=== PATIENT | female | born 1950 | race Caucasian/White ===

== ENCOUNTER 2019-11-23 12:19 | Outpatient (CLI) | payer OTHER, SELFPAY ==
--- NOTE | ~2019-11-23 | XR_ITS ---
EXAMINATION: XR knee LT 3V EXAM DATE: 11/23/2019 12:46 INDICATION: No known recent injury provided at this time. Pain of the left knee. TECHNIQUE: Three projections of the left knee. There is no prior study for comparison. FINDINGS: No evidence osteochondral defect or joint body in the left knee joint. There is mild patel llofemoral compartment primary osteoarthritis. No joint effusion. There are no acute fractures or di slocations identified. There is no subcutaneous gas. The soft tissue is unremarkable. There are n o radiopaque foreign bodies. IMPRESSION: Mild left patellofemoral compartment osteoarthritis. Reviewed, dictated and finalized at location B.
--- NOTE | ~2019-11-23 | XR_ITS ---
EXAMINATION: XR knee RT 3V EXAM DATE: 11/23/2019 12:45 INDICATION: No known recent injury provided at this time. Pain of the right knee. TECHNIQUE: Three projections of the right knee. Correlation is made to contralateral knee same date. FINDINGS: No evidence osteochondral defect or joint body in the right knee joint. There is mild pat ellofemoral compartment primary osteoarthritis. There are no acute fractures or dislocations identifi ed. There is no subcutaneous gas. The soft tissue is unremarkable. There are no radiopaque foreig n bodies. IMPRESSION: Mild right patellofemoral compartment osteoarthritis. Reviewed, dictated and finalized at location B.
[2019-11-23 12:47] LABS: Anion Gap 7 mmol/L (8-16); Blood Urea Nitrogen 15 mg/dL (7-17); Calcium 9.2 mg/dL (8.4-10.2); Carbon Dioxide 29 mmol/L (22-30); Chloride 101 mmol/L (98-107); Estimated Glomerular Filt Rate > 60; Glucose 112 mg/dL (65-105); Potassium 3.9 mmol/L (3.4-5.0); Sodium 137 mmol/L (137-145)
== END 2019-11-23 12:20 | disposition home or self-care (01) ==
PROVIDERS: PCP Internal Medicine; Visit Provider Internal Medicine
DX: M17.0 Bilateral primary osteoarthritis of knee (principal); I10 Essential (primary) hypertension
CPT/HCPCS: 36415; 73562; 80048

== ENCOUNTER 2020-06-11 09:16 | Outpatient (CLI) | payer OTHER, SELFPAY ==
[2020-06-11 09:53] LABS: Alanine Aminotransferase 19 U/L (4-35); Alkaline Phosphatase 71 U/L (38-126); Anion Gap 2 mmol/L (8-16); Aspartate Amino Transferase 26 U/L (14-36); Bilirubin,Total 0.7 mg/dL (0.2-1.3); Blood Urea Nitrogen 15 mg/dL (7-17); Calcium 9.2 mg/dL (8.4-10.2); Carbon Dioxide 34 mmol/L (22-30); Chloride 104 mmol/L (98-107); Cholesterol 193 mg/dL (0-200); Estimated Glomerular Filt Rate > 60; Glucose 99 mg/dL (65-105); HDL Direct 69 mg/dL; Potassium 3.6 mmol/L (3.4-5.0); Sodium 140 mmol/L (137-145); Triglycerides 83 mg/dL (<150)
[2020-06-11 10:03] LABS: LDL Cholesterol Direct 95 mg/dL
== END 2020-06-11 09:17 | disposition home or self-care (01) ==
PROVIDERS: PCP Internal Medicine; Visit Provider Internal Medicine
DX: E78.5 Hyperlipidemia, unspecified (principal); I10 Essential (primary) hypertension; E78.2 Mixed hyperlipidemia
CPT/HCPCS: 36415; 80053; 80061; 84443

== ENCOUNTER 2020-07-12 10:18 | Outpatient (CLI) | payer OTHER, SELFPAY ==
--- NOTE | ~2020-07-12 | MM_ITS ---
EXAMINATION: MM screening shakeel BI w laney HISTORY: Screening mammogram TECHNIQUE: Craniocaudal and mediolateral oblique 3-D tomosynthesis images were obtained and synthetic 2-D images were generated. CAD analysis was submitted and interpreted. COMPARISON: 04/13/2019, 03/18/2018, bilateral digital screening mammogram examinations BREAST PARENCHYMAL COMPOSITION: There are scattered areas of fibroglandular density. FINDINGS: There is no evidence of suspicious mass, calcification, or architectural distortion to sugg est malignancy in either breast. There has been no suspicious interval change. IMPRESSION: 1. No mammographic evidence of malignancy. 2. Recommend routine screening mammography in one year. BI-RADS Category 1: Negative Reviewed, dictated and finalized at location A.
== END 2020-07-12 10:19 | disposition home or self-care (01) ==
PROVIDERS: PCP Internal Medicine; Visit Provider Internal Medicine
DX: Z12.31 Encounter for screening mammogram for malignant neoplasm of breast (principal)
CPT/HCPCS: 77063; 77067

== ENCOUNTER 2020-11-13 08:02 | Outpatient (CLI) | payer OTHER, SELFPAY ==
--- NOTE | 2020-11-13 08:00 | ECG_ITS ---
Measurements Intervals [place] Rate: 76 P: 38 CO: 155 QRS: 15 QRSD: 77 T: 0 QT: 380 QTc: 429 Interpretive Statements SINUS RHYTHM POSSIBLE LEFT ATRIAL ENLARGEMENT INCOMPLETE RIGHT BUNDLE BRANCH BLOCK DELAYED PRECORDIAL R/S TRANSITION BORDERLINE T WAVE ABNORMALITY- INFERIOR LEADS BASELINE ARTIFACT- I, II, III, AVR, AVL BORDERLINE ECG Electronically Signed On 11-13-2020 8:29:10 CDT by Saturnino Medel D.O.
[2020-11-13 09:07] LABS: Anion Gap 7 mmol/L (8-16); Blood Urea Nitrogen 15 mg/dL (7-17); Calcium 9.4 mg/dL (8.4-10.2); Carbon Dioxide 27 mmol/L (22-30); Chloride 101 mmol/L (98-107); Estimated Glomerular Filt Rate > 60; Glucose 95 mg/dL (65-110); Potassium 3.6 mmol/L (3.4-5.0); Sodium 135 mmol/L (137-145)
== END 2020-11-13 08:03 | disposition home or self-care (01) ==
LOC: ANHSURGERY 08:06
PROVIDERS: Anesthesiology; PCP Internal Medicine; Visit Provider Surgery Plastic and Reconstructive Surgery
DX: Z01.818 Encounter for other preprocedural examination (principal); I10 Essential (primary) hypertension
CPT/HCPCS: 36415; 80048; 93005

== ENCOUNTER 2020-11-15 01:22 | Day surgery (SDC) | payer OTHER, SELFPAY ==
[2020-11-05 13:50] VITALS: BMI 28.3
[2020-11-15 08:48] VITALS: BP 138/81; PULSE 79; RESP 18; TEMP 37.1; O2SAT 97; BMI 29.5
[2020-11-15] MEDS: LACTATED RINGERS 1,000 ML 30 ML IV CONT (09:09)
--- NOTE | 2020-11-15 09:20 | WPDANESEPPF ---
Anes - Initial Pre Proc Eval Procedure: Operation Date: 11/15/20 10:30 Proposed Procedures p Excision Mass Left Upper Lash Line, Excision Mass Left Upper Eyelid - Klaus Ayers MD Date/Time: 11/15/20 09:20 Surgeon: Klaus Ayers MD Pre Op Diagnosis: mass left upper lash line and left upper eyelid Patient Data Age: 70 Gender: F Height: 1.6 m Weight: 75.6 kg Last Vital Signs Temp 37.1 C 11/15/20 08:48 Pulse 79 11/15/20 08:48 Resp 18 11/15/20 08:48 BP 138/81 11/15/20 08:48 Pulse Ox 97 11/15/20 08:48 Allergies Allergy/AdvReac Type Severity Reaction Status Date / Time Penicillins Allergy Mild Hives Verified 11/15/20 08:50 Home Medications Medication Instructions Recorded Confirmed Type calcium carbonate 600 mg(1,500 1 tablet PO DAILY 03/22/19 11/15/20 History mg)-vitamin D3 800 unit chewable tablet cholecalciferol (vitamin D3) 50 2,000 unit PO DAILY 03/22/19 11/15/20 History mcg (2,000 unit) tablet coenzyme Q10 100 mg capsule 100 mg PO DAILY 03/22/19 11/15/20 History omega 3,6,9 combination no.7 92 mg 92 mg PO DAILY 03/22/19 11/15/20 History (43 mg-22 [id number]) chew tablet amlodipine 5 mg tablet 5 mg PO DAILY #90 tablet 06/07/20 11/15/20 Rx fluticasone propionate 50 2 spray NASAL DAILY PRN 06/07/20 11/15/20 History mcg/actuation nasal spray,suspension hydrochlorothiazide 12.5 mg capsule 12.5 mg PO DAILY #90 cap 06/07/20 11/15/20 Rx mecobalamin (vitamin B12) 1,000 1,000 mcg SUBLINGUAL BID tablet 06/07/20 11/15/20 History mcg disintegrating tablet,sublingual atorvastatin 10 mg tablet 10 mg PO DAILY #90 tablet 08/27/20 11/15/20 Rx Patient hx anesthesia problems: none Family hx anesthesia problems: none PMFSH Past Medical History Medical History Dyslipidemia Essential hypertension Surgical History Surgical History History of delivery Family History Family History Father Family history of heart disease in male family member before age 55 Mother Family history of heart disease in male family member before age 55 Other Diabetes mellitus Family history of alcoholism Family history of arthritis Family history of cardiovascular disease Hypertension Social History Social History Years smoked: 16 Smoking status: Former smoker Tobacco type: cigarettes Second hand tobacco smoke exposure: Yes Smoking end date: 04/06/79 Alcohol intake: current Drinks per week: 3 Living arrangements: with family Spiritual care concerns: No Anes - Eval Final PreProcedure Day of Procedure 11/15/20 09:20 Patient weight: overweight Heart: regular rate and rhythm Lungs: clear to auscultation Airway: Mallampati scale class II Neurological: alert and oriented Last oral intake: >/= 8 hours ASA classification: II Emergent: no Anesthetic plan: proceed Anesthesia type and monitoring: general LMA and standard monitoring Informed Consent: The patient's anesthetic plan and its attendant risks and benefits were discussed with the patient/family/POA. Questions were solicited and answers provided to the satisfaction of the patient/family/POA.
--- NOTE | 2020-11-15 09:57 | WPDHPUPDATE1 ---
History and Physical Update Update Date/Time: 11/15/20 09:57 History and Physical has been reviewed, including an updated exam of the patient. There are NO changes in the patient's condition. Risks, benefits, and alternatives have been discussed and questions answered. Patient agrees to proceed with procedure.
[2020-11-15] MEDS: ceFAZolin 2 GM/D5W 50 ML 2 GM/50 ML BAG IVPB (10:27)
[2020-11-15 11:07] VITALS: BP 93/65; PULSE 73; RESP 16; O2SAT 95
[2020-11-15] MEDS: BACITRACIN OP OINT 3.5 GM TUBE 1 APPLIC LEFT EYE (11:12)
--- NOTE | 2020-11-15 11:15 | W.PM.PROC2 ---
Procedure Note - Detailed Date of Procedure 11/15/20 Pre-op Diagnosis Mass left upper lash line and left upper eyelid Post-op Diagnosis same Procedure Performed 1. Excision mass left upper lash line 0.4cm. 2. Excision mass left upper eyelid 0.5cm. Surgeon Klaus Ayers MD Anesthesia MAC Description of Procedure Risks, benefits, alternatives were discussed in extensive detail. I wanted her to be very realistic about the risks involved as well as expectations. All questions answered to satisfaction. Consent obtained. Patient was marked in the preoperative holding area with her verification. Taken to the operating room placed supine on the operating room table. Anesthesia provided by anesthesiology and prepped and draped in a standard sterile fashion. Surgical time-out was taken. 1% lidocaine and 0.25% Marcaine with epinephrine was used anesthetize locally. I sharply excised the cyst on the left upper lash line in left upper lid. These were sent to pathology. Measurements as above. There were closed with 5 0 fast-absorbing gut. She tolerated the procedure well. Taken the PACU without difficulty. All instrument sponge counts were correct at the end of the case. Estimated Blood Loss 2 Drains No Packing No Pathology yes (Left upper eyelid cyst x 2) Complications No immediate complications Condition stable Disposition PACU
[2020-11-15 11:30] VITALS: BP 113/79; PULSE 66; RESP 16
[2020-11-15 12:00] VITALS: BP 135/85; PULSE 61; RESP 16
--- NOTE | 2020-11-15 12:59 | SUR.PHASEII ---
DISREGARD CHARTING AT 1257.
--- NOTE | 2020-11-15 13:02 | SUR.PHASEII ---
DISREGARD CHARTING AT 1255.
== END 2020-11-15 12:35 | disposition home or self-care (01) ==
PROVIDERS: PCP Internal Medicine; Visit Provider Surgery Plastic and Reconstructive Surgery
PROC: (CPT 11441; principal; 2020-11-15 10:30)
DX: D23.121 Other benign neoplasm of skin of left upper eyelid, including canthus (principal); L98.8 Other specified disorders of the skin and subcutaneous tissue; I10 Essential (primary) hypertension; E78.5 Hyperlipidemia, unspecified; Z87.891 Personal history of nicotine dependence
CPT/HCPCS: 11441; 36415; 80048; 88304; 88305; 93005; A9270; J0690; J2704; J7120

== ENCOUNTER 2021-06-27 08:52 | Outpatient (CLI) | payer OTHER, SELFPAY ==
[2021-06-27 09:32] LABS: Alanine Aminotransferase 18 U/L (4-35); Albumin Level 3.9 g/dL (3.5-5.1); Alkaline Phosphatase 83 U/L (38-126); Anion Gap 2 mmol/L (8-16); Aspartate Amino Transferase 27 U/L (14-36); Bilirubin,Total 0.8 mg/dL (0.2-1.3); Blood Urea Nitrogen 12 mg/dL (7-17); Calcium 8.9 mg/dL (8.4-10.2); Carbon Dioxide 32 mmol/L (22-30); Chloride 104 mmol/L (98-107); Estimated Glomerular Filt Rate > 60; Glucose 112 mg/dL (65-110); Potassium 4.1 mmol/L (3.4-5.0); Sodium 138 mmol/L (137-145)
[2021-06-27 09:41] LABS: Basophils Percent Auto 0.7 % (0.2-1.2); Eosinophils Absolute Auto 0.4 K/mm3 (0-0.3); Eosinophils Percent Auto 8.7 % (0-4.4); Hemoglobin 14.3 g/dL (12.0-15.0); Immature Granulocyte Absolute 0.01 K/mm3 (0.00-0.031); Immature Granulocyte Percent A 0.2 % (0-0.5); Lymphocytes Absolute Auto 1.47 K/mm3 (0.9-3.2); Lymphocytes Percent Auto 32.7 % (18.3-44.2); Mean Corpuscular Hemoglobin 31.4 pg (26-34); Mean Corpuscular Volume 92.3 fl (80-100); Mean Platelet Volume 10.6 fl (7.4-10.4); Monocytes Absolute Auto 0.4 K/mm3 (0.1-0.6); Monocytes Percent Auto 9.6 % (2.6-8.5); Neutrophils Absolute Auto 2.2 K/mm3 (1.3-6.7); Neutrophils Percent Auto 48.1 % (45.5-73.1); Platelet Count Result 206 k/mm3 (150-375); Red Blood Count 4.55 M/mm3 (4.2-5.4); Red Cell Distribution Width 12.3 % (11.5-14.5); White Blood Count 4.5 K/mm3 (4.5-10.0)
[2021-06-27 10:12] LABS: Vitamin D 25 Hydroxy 60.5 ng/mL
== END 2021-06-27 08:53 | disposition home or self-care (01) ==
LOC: ANHLAB 08:57
PROVIDERS: PCP Internal Medicine; Visit Provider Internal Medicine
DX: G25.0 Essential tremor (principal); E55.9 Vitamin D deficiency, unspecified; M85.89 Other specified disorders of bone density and structure, multiple sites; E78.00 Pure hypercholesterolemia, unspecified; E78.5 Hyperlipidemia, unspecified
CPT/HCPCS: 36415; 80053; 82306; 84443; 85025

== ENCOUNTER 2022-03-18 08:53 | Outpatient (CLI) | payer OTHER, SELFPAY ==
--- NOTE | ~2022-03-18 | MM_ITS ---
EXAMINATION: MM screening shakeel BI w laney HISTORY: Screening TECHNIQUE: Craniocaudal and mediolateral oblique 3-D tomosynthesis images were obtained and synthetic 2-D images were generated. CAD analysis was submitted and interpreted. COMPARISON: Comparison to multiple prior studies sequentially, with oldest reviewed study dated 10/21. BREAST PARENCHYMAL COMPOSITION: Breast composed of scattered areas of fibroglandular density FINDINGS: There is no evidence of suspicious mass, calcification, or architectural distortion to sugg est malignancy in either breast. There has been no suspicious interval change. IMPRESSION: 1. No mammographic evidence of malignancy. 2. Recommend routine screening mammography in one year. BI-RADS Category 1: Negative Reviewed, dictated and finalized at location B. RIBUTION MANAGER
== END 2022-03-18 08:54 | disposition home or self-care (01) ==
PROVIDERS: PCP Family Medicine; Visit Provider Family Medicine
DX: Z12.31 Encounter for screening mammogram for malignant neoplasm of breast (principal)
CPT/HCPCS: 77063; 77067

== ENCOUNTER 2022-07-02 09:08 | Outpatient (CLI) | payer OTHER, SELFPAY ==
[2022-07-02 20:07] LABS: Alanine Aminotransferase 25 U/L (6-35); Alkaline Phosphatase 79 U/L (38-126); Anion Gap 4 mmol/L (8-16); Aspartate Amino Transferase 28 U/L (14-36); Bilirubin,Total 0.7 mg/dL (0.2-1.3); Blood Urea Nitrogen 20 mg/dL (7-17); Calcium 8.8 mg/dL (8.4-10.2); Carbon Dioxide 31 mmol/L (22-30); Chloride 104 mmol/L (98-107); Cholesterol 149 mg/dL (0-200); Estimated Glomerular Filt Rate > 60; Glucose 94 mg/dL (65-110); HDL Direct 56 mg/dL; Potassium 3.7 mmol/L (3.4-5.0); Sodium 139 mmol/L (137-145); Triglycerides 66 mg/dL (<150)
[2022-07-02 20:19] LABS: LDL Cholesterol Direct 71 mg/dL
== END 2022-07-02 09:09 | disposition home or self-care (01) ==
LOC: ANHGOSHLAB 09:09
PROVIDERS: PCP Family Medicine; Visit Provider Family Medicine
DX: E78.00 Pure hypercholesterolemia, unspecified (principal); I10 Essential (primary) hypertension; Z13.29 Encounter for screening for other suspected endocrine disorder
CPT/HCPCS: 36415; 80053; 80061; 84443

== ENCOUNTER 2022-09-09 08:00 | Outpatient (NON) | payer OTHER, SELFPAY | END 2022-09-09 08:01 | disposition home or self-care (01) | LOC: ANHLAB 09-10 12:04 | PROVIDERS: PCP Family Medicine; Visit Provider Nurse Practitioner | DX: D36.10 Benign neoplasm of peripheral nerves and autonomic nervous system, unspecified (principal) | CPT/HCPCS: 88304; 88305 ==

== ENCOUNTER 2023-07-08 09:13 | Outpatient (CLI) | payer OTHER, SELFPAY ==
--- NOTE | ~2023-07-08 | MM_ITS ---
EXAMINATION: MM screening shakeel BI w laney HISTORY: Screening TECHNIQUE: Craniocaudal and mediolateral oblique 3-D tomosynthesis images were obtained and synthetic 2-D images were generated. CAD analysis was submitted and interpreted. COMPARISON: Comparison to multiple prior studies sequentially, with oldest reviewed study dated 11/2019. BREAST PARENCHYMAL COMPOSITION: Not dense: There are scattered areas of fibroglandular density. FINDINGS: There is no evidence of suspicious mass, calcification, or architectural distortion to sugg est malignancy in either breast. There has been no suspicious interval change. IMPRESSION: 1. No mammographic evidence of malignancy. 2. Recommend routine screening mammography in one year. BI-RADS Category 1: Negative Reviewed, dictated and finalized at location A.
== END 2023-07-08 09:14 | disposition home or self-care (01) ==
LOC: ANHIMG 09:16
PROVIDERS: PCP Family Medicine; Visit Provider Family Medicine
DX: Z12.31 Encounter for screening mammogram for malignant neoplasm of breast (principal)
CPT/HCPCS: 77063; 77067

== ENCOUNTER 2023-07-09 09:12 | Outpatient (CLI) | payer OTHER, SELFPAY ==
[2023-07-09 13:10] LABS: Basophils Absolute Auto 0.1 K/mm3 (0.0-0.1); Basophils Percent Auto 0.9 % (0.2-1.2); Eosinophils Absolute Auto 0.4 K/mm3 (0-0.3); Eosinophils Percent Auto 7.4 % (0-4.4); Hematocrit 45.7 % (37.0-47.0); Immature Granulocyte Absolute 0.01 K/mm3 (0.00-0.031); Immature Granulocyte Percent A 0.2 % (0-0.5); Lymphocytes Absolute Auto 1.84 K/mm3 (0.9-3.2); Lymphocytes Percent Auto 33.3 % (18.3-44.2); Mean Corpuscular HGB Conc 32.8 g/dl (32-36); Mean Corpuscular Hemoglobin 31.3 pg (26-34); Mean Corpuscular Volume 95.4 fl (80-100); Mean Platelet Volume 11.1 fl (7.4-10.4); Monocytes Absolute Auto 0.4 K/mm3 (0.1-0.6); Monocytes Percent Auto 6.5 % (2.6-8.5); Neutrophils Absolute Auto 2.9 K/mm3 (1.3-6.7); Neutrophils Percent Auto 51.7 % (45.5-73.1); Platelet Count Result 220 k/mm3 (150-375); Red Blood Count 4.79 M/mm3 (4.2-5.4); Red Cell Distribution Width 12.5 % (11.5-14.5); White Blood Count 5.5 K/mm3 (4.5-10.0)
[2023-07-09 13:30] LABS: Alanine Aminotransferase 20 U/L (6-35); Albumin Level 3.9 g/dL (3.5-5.1); Alkaline Phosphatase 78 U/L (38-126); Anion Gap 2 mmol/L (4-12); Aspartate Amino Transferase 59 U/L (14-36); Blood Urea Nitrogen 17 mg/dL (7-17); Calcium 9.4 mg/dL (8.4-10.2); Carbon Dioxide 30 mmol/L (22-30); Chloride 106 mmol/L (98-107); Cholesterol 158 mg/dL (0-200); Estimated Glomerular Filt Rate > 60; Glucose 100 mg/dL (65-110); HDL Direct 59 mg/dL; Potassium 3.8 mmol/L (3.4-5.0); Sodium 138 mmol/L (137-145); Triglycerides 84 mg/dL (<150)
[2023-07-09 13:41] LABS: LDL Cholesterol Direct 80 mg/dL
== END 2023-07-09 09:13 | disposition home or self-care (01) ==
LOC: ANHGOSHLAB 09:13
PROVIDERS: PCP Family Medicine; Visit Provider Family Medicine
DX: Z13.228 Encounter for screening for other metabolic disorders (principal); E66.3 Overweight; Z13.220 Encounter for screening for lipoid disorders; I10 Essential (primary) hypertension; Z13.29 Encounter for screening for other suspected endocrine disorder; R53.83 Other fatigue
CPT/HCPCS: 36415; 80053; 80061; 84443; 85025

== ENCOUNTER 2023-08-27 00:50 | Day surgery (SDC) | payer OTHER, SELFPAY ==
[2023-08-14 11:00] VITALS: BMI 30.8
--- NOTE | 2023-08-14 11:23 | PC.NURSE ---
Report to the Outpatient Waiting Room, entrance under the green pavilion located off [facility], at time __8:30am on date __08/27/23 . Planned Procedure Time: __10:30am . Time changes happen often and if your time is changed the preop area will call you the afternoon before. - You and your visitor will be asked to self-screen and do not enter if you have any COVID symptoms. - A mask is optional within the hospital at this time. Patients may have clear liquids (water, carbonated beverages, clear teas, apple juice) until 3 hours prior to surgery with a maximum of 20 ounces. - No food from midnight until time of surgery. Take the following medications with a SIP of water the morning of surgery: AMLODIPINE, PROPRANOLOL DO NOT STOP ANY OF YOUR OTHER PRESCRIPTION MEDICATIONS PRIOR TO SURGERY ?EXCEPT THE FOLLOWING Medications to discontinue per physician ___HOLD ALL VITAMINS/SUPPLEMENTS 3 DAYS PRE-OP PER ANESTHESIA Date to take last dose 08/23/23 Please no make-up, nail togolese, hairspray, perfume, deodorant, or body powder the day of surgery. No jewelry (including any body piercings) or valuables the day of surgery, leave them at home. Please take a shower or bath the night before, or the morning of, surgery with an antibacterial soap. Wear comfortable, loose fitting clothing. - Jewelry must be removed prior to entering the operating room. Rings and piercings that are not removed may be cut off. - The hospital will not accept responsibility for valuables. - Please leave all valuables, including medications, at home the day of surgery. If you are going home after surgery, a licensed lease purchase truck driver must drive you home. - NO public transportation without another adult if you receive anesthesia. - We recommend that an adult stay with you for 24 hours following discharge. - We also recommend that you do not drive, make important decision, drink alcoholic beverages, or take any drugs that were not prescribed by your health care provider for at least 24 hours after your discharge time. Follow any additional instructions given to you from your surgeon. If you or anyone in your household have experienced Covid symptoms in the past week, please notify your surgeon or the nurse liaison at the phone number below for possible testing. Telephone instructions given to ____PATIENT and asked if any additional questions and then verbalized understanding. Patient advised to call surgeon office or pre surgery nurse liaison [phone] if any additional questions.
--- NOTE | 2023-08-26 15:24 | PM.IMHP ---
H&P: HPI History of Present Illness Date/Time: 08/26/23 15:24 73-year-old female presents with complaints 5 days of pink tinged vaginal bleeding in March. This has not recurred and was not accompanied by any type of pain or discomfort, did occur spontaneously and resolve spontaneously as well. Ultrasound was performed which showed no major anatomic abnormalities though the endometrial thickness of 6mm with fluid in the endometrial cavity. Has had no recurrence of the bleeding episode. Chief Complaint: Postmenopausal bleeding/endometrial hypertrophy on ultrasound Review of Systems Review of Systems: All systems reviewed & are unremarkable except as noted in HPI and below PMFSH Past Medical History Medical History Dyslipidemia Essential hypertension Surgical History Surgical History History of delivery History of cholecystectomy (2017) Family History Family History Father Family history of heart disease in male family member before age 55 Mother Family history of heart disease in male family member before age 55 Other Diabetes mellitus Family history of alcoholism Family history of arthritis Family history of cardiovascular disease Hypertension Social History Social History Smoking packs per day: 0.2 Smoking cigarettes per day: 4.0 Years smoked: 15 Smoking pack-years: 3.00 Smoking status: Former smoker Tobacco type: cigarettes Second hand tobacco smoke exposure: Yes Smoking end date: 10/05/83 Alcohol intake: current Drinks per week: 2 Substance use: never Substance use type: does not use Do You Feel Safe in your Home?: Yes Lack of Transportation: No Lack of Food: Never True Current Housing: I Have Housing Concerned About Future Housing: No Difficulty Paying Gas/Electric Bills: No Difficulty Paying for Meds: No Currently Unemployed: No Education: Master's Degree or Higher Difficulty w/ Childcare or Family Care: No Living arrangements: with family Additional living arrangements comments: [place] Occupation/Education: retired Gender identity (if verbalized by the patient): Female Sexual Orientation (if Verbalized by the Patient): Straight or Heterosexual Spiritual care concerns: No Meds Home Medications and Allergies Home Medications Medication Instructions Recorded Confirmed Type calcium carbonate 600 mg-vitamin 1 tablet PO DAILY 03/22/19 08/14/23 History D3 20 mcg (800 unit) chewable tablet (Caltrate 600 plus D) cholecalciferol (vitamin D3) 50 2,000 unit PO DAILY 03/22/19 08/14/23 History mcg (2,000 unit) tablet coenzyme Q10 100 mg capsule 100 mg PO DAILY 03/22/19 08/14/23 History omega 3,6,9 combination no.7 92 mg 92 mg PO DAILY 03/22/19 08/14/23 History (43 mg-22 [id number]) chew tablet mecobalamin (vitamin B12) 1,000 1,000 mcg sublingual BID 06/07/20 08/14/23 History mcg disintegrating tablet,sublingual propranolol 40 mg tablet 40 mg PO BID 90 days #180 tabs 06/15/23 08/14/23 Rx atorvastatin 10 mg tablet 10 mg PO DAILY #90 tabs 07/16/23 08/14/23 Rx amlodipine 5 mg tablet 5 mg PO QAM 08/14/23 08/14/23 History famotidine 20 mg tablet (Pepcid AC) 20 mg PO DAILY 08/14/23 08/14/23 History Allergies Allergy/AdvReac Type Severity Reaction Status Date / Time Penicillins Allergy Mild Hives Verified 08/14/23 10:55 Exam Resp: Effort & Inspection: normal respiratory effort Auscultation: clear to auscultation bilaterally Cardio: Rate: regular rate Rhythm: regular rhythm GI: Inspection: normal to inspection Auscultation: normal bowel sounds : External Female Exam: normal external appearance Speculum Exam - Vagina: normal appearance of the vagina Speculum Exam - Cervix: normal ap
--- NOTE | 2023-08-27 06:57 | WPDHPUPDATE1 ---
History and Physical Update Update Date/Time: 08/27/23 06:57 History and Physical has been reviewed, including an updated exam of the patient. There are NO changes in the patient's condition. Risks, benefits, and alternatives have been discussed and questions answered. Patient agrees to proceed with procedure.
[2023-08-27 08:15] VITALS: BP 121/79; PULSE 63; RESP 16; TEMP 36.5; O2SAT 96; BMI 31.4
[2023-08-27] MEDS: LACTATED RINGERS 1,000 ML 30 ML IV CONT (09:05)
[2023-08-27] MEDS: ACETAMINOPHEN 500 MG TABLET 1000 MG PO (09:12)
--- NOTE | 2023-08-27 09:55 | WPDANESEPPF ---
Anes - Initial Pre Proc Eval Procedure: Operation Date: 08/27/23 10:00 Proposed Procedures p Hysteroscopy Dilation and Curettage - Garcia Jimenez MD Date/Time: 08/27/23 09:55 Surgeon: Garcia Jimenez MD Pre Op Diagnosis: Post menapausal Bleeding Patient Data Age: 73 Gender: F Height: 1.6 m Weight: 80.6 kg Last Vital Signs Temp 97.7 F 08/27/23 08:15 Pulse 63 08/27/23 08:15 Resp 16 08/27/23 08:15 BP 121/79 08/27/23 08:15 Pulse Ox 96 08/27/23 08:15 O2 Del Method Room Air 08/27/23 08:15 Allergies Allergy/AdvReac Type Severity Reaction Status Date / Time Penicillins Allergy Mild Hives Verified 08/27/23 09:28 Home Medications Medication Instructions Recorded Confirmed Type calcium carbonate 600 mg-vitamin 1 tablet PO DAILY 03/22/19 08/27/23 History D3 20 mcg (800 unit) chewable tablet (Caltrate 600 plus D) cholecalciferol (vitamin D3) 50 2,000 unit PO DAILY 03/22/19 08/27/23 History mcg (2,000 unit) tablet coenzyme Q10 100 mg capsule 100 mg PO DAILY 03/22/19 08/27/23 History omega 3,6,9 combination no.7 92 mg 92 mg PO DAILY 03/22/19 08/27/23 History (43 mg-22 [id number]) chew tablet mecobalamin (vitamin B12) 1,000 1,000 mcg sublingual BID 06/07/20 08/27/23 History mcg disintegrating tablet,sublingual propranolol 40 mg tablet 40 mg PO BID 90 days #180 tabs 06/15/23 08/27/23 Rx atorvastatin 10 mg tablet 10 mg PO DAILY #90 tabs 07/16/23 08/27/23 Rx amlodipine 5 mg tablet 5 mg PO QAM 08/14/23 08/27/23 History famotidine 20 mg tablet (Pepcid AC) 20 mg PO DAILY 08/14/23 08/14/23 History Patient hx anesthesia problems: none Family hx anesthesia problems: none Results Review: All pre-operative results and documents have been reviewed as part of the pre-operative evaluation. [facility] Past Medical History Medical History Dyslipidemia Essential hypertension Surgical History Surgical History History of delivery History of cholecystectomy (2017) Family History Family History Father Family history of heart disease in male family member before age 55 Mother Family history of heart disease in male family member before age 55 Other Diabetes mellitus Family history of alcoholism Family history of arthritis Family history of cardiovascular disease Hypertension Social History Social History Smoking packs per day: 0.2 Smoking cigarettes per day: 4.0 Years smoked: 15 Smoking pack-years: 3.00 Smoking status: Former smoker Tobacco type: cigarettes Second hand tobacco smoke exposure: Yes Smoking end date: 10/05/83 Alcohol intake: current Drinks per week: 2 Substance use: never Substance use type: does not use Do You Feel Safe in your Home?: Yes Lack of Transportation: No Lack of Food: Never True Current Housing: I Have Housing Concerned About Future Housing: No Difficulty Paying Gas/Electric Bills: No Difficulty Paying for Meds: No Currently Unemployed: No Education: Master's Degree or Higher Difficulty w/ Childcare or Family Care: No Living arrangements: with family Additional living arrangements comments: [place] Occupation/Education: retired Gender identity (if verbalized by the patient): Female Sexual Orientation (if Verbalized by the Patient): Straight or Heterosexual Spiritual care concerns: No Anes - Eval Final PreProcedure Day of Procedure 08/27/23 09:55 Patient weight: obese Heart: regular rate and rhythm Lungs: clear to auscultation Airway: Mallampati scale class II Neurological: alert and oriented Last oral intake: >/= 8 hours ASA classification: III Emergent: no Anesthetic plan: proceed Anesthesia type and monitoring: gener
--- NOTE | 2023-08-27 10:27 | W.PM.PROC2 ---
Procedure Note - Detailed Date of Procedure 08/27/23 Pre-op Diagnosis 1. Post menapausal Bleeding 2. Endometrial hypertrophy Post-op Diagnosis Same Procedure Performed 1. Hysteroscopy 2. Uterine curettings Surgeon Garcia Jimenez MD Anesthesia MAC Findings Atrophic endometrial cavity with small uterine septum noted Description of Procedure Patient prepped in usual manner for this procedure. Cervix was dilated to allow the hysteroscope to be placed. Upon placing hysteroscope in the endometrial cavity atrophy was noted throughout, no polyps or fibroids or significant endometrial tissue. Small uterine septum was identified. Curettings were then obtained with scant tissue provided. Patient was then sent to recovery room in stable condition. Estimated Blood Loss 10 Drains No Packing No Pathology Yes (Scant endometrial tissue) Complications No immediate complications Condition Stable Disposition PACU [facility] Billing Surgery - Charge Forward: Surgery Billing
[2023-08-27 10:33] VITALS: BP 97/74; PULSE 60; RESP 14; O2SAT 95
[2023-08-27 11:05] VITALS: BP 113/67; PULSE 53; RESP 16
[2023-08-27 11:27] VITALS: BP 134/81; PULSE 55; RESP 16
== END 2023-08-27 11:33 | disposition home or self-care (01) ==
PROVIDERS: PCP Family Medicine; Visit Provider Obstetrics & Gynecology
PROC: 0U5B8ZZ Destruction of Endometrium, Via Natural or Artificial Opening Endoscopic (ICD-10-PCS; CPT 58563; principal; 2023-08-27 10:00)
DX: N95.0 Postmenopausal bleeding (principal); N85.8 Other specified noninflammatory disorders of uterus; I10 Essential (primary) hypertension; E78.5 Hyperlipidemia, unspecified; Z87.891 Personal history of nicotine dependence; E66.9 Obesity, unspecified; Z68.31 Body mass index [BMI] 31.0-31.9, adult
CPT/HCPCS: 58558; 88305; A9270; J2250; J2405; J2704; J3010; J7120

== ENCOUNTER 2024-08-01 09:32 | Outpatient (CLI) | payer OTHER, SELFPAY ==
--- OUTSIDE RECORDS SUMMARY | 2024-08-01 10:23 | XMS_ITS | Encounter Summary ---
Author Organization [facility] Address 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 - [facility] [address] [place] [address] Silivno Senior MD [id number] [address] Social History Tobacco Use Types Packs/Day Years Used Date Smoking Tobacco: Never Assessed Comments Unknown Sex and Gender Information Value Date Recorded Sex Assigned at Not on file 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
--- OUTSIDE RECORDS SUMMARY | 2024-08-01 10:23 | XMS_ITS | Encounter Summary ---
Author Organization [facility] Address 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 - [facility] [address] [place] [address] Silvino Senior MD [id number] [address] Social History Tobacco Use Types Packs/Day Years Used Date Smoking Tobacco: Never Assessed Comments Unknown Sex and Gender Information Value Date Recorded Sex Assigned at Not on file 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
--- OUTSIDE RECORDS SUMMARY | 2024-08-01 10:23 | XMS_ITS | Clinical Summary ---
Author Organization [facility] Address [address] [place] [address] Care Team Providers Care Instrument Maker Name Role Phone Hollis Pemberton MD Primary Care Provider [phone] Allergies Active Allergy Reactions Criticality Noted Date Comments Penicillins Rash Low 12/31/2009 Medications 0mega-3 fatty acids-vitamin E (FISH OIL) 1,000 mg Oral Cap Take 1,000 mg by mouth. Active Calcium-Cholecal ciferol, D3, (CALCIUM 500 + D) 500 mg(1,250mg) -400 unit Oral Tab Take by mouth. Active CYANOCOBALAMIN, VITAMIN B-12, (B-12 DOTS ORAL) Take by mouth. Active Active Problems No known active problems Family History Medical History Relation Name Comments Healthy Brother Heart Disease Father Heart Disease Mother Relation Name Status Comments Brother Alive Father Mother Social History Tobacco Use Types Packs/Day Years Used Date Smoking Tobacco: Never Smokeless Tobacco: Never Alcohol Use Standard Drinks/Week Comments Yes 0 (1 standard drink = 0.6 oz pur e alcohol) Comments No Sex and Gender Information Value Date Recorded Sex Assigned at Not on file Legal Sex Female 2:51 AM DATABASE DESIGNER Gender Identity Not on file Sexual Orientation Not on file Occupation Industry Job Start Date Job End Date Not on file Not on file Not on file Not on file Last Filed Vital Signs Vital Sign Reading Time Taken Comments Blood Pressure 135/82 05/25/2012 9:58 AM DATABASE DESIGNER Pulse - - Temperature - - Respiratory Rate - - Oxygen Saturation - - Inhaled Oxygen Concentration - - Weight 73.9 kg (163 lb) 05/25/2012 9:58 AM DATABASE DESIGNER Height 160 cm (5' 3 ) 05/25/2012 9:58 AM DATABASE DESIGNER Body Mass Index 28.87 05/25/2012 9:58 AM DATABASE DESIGNER Plan of Treatment Health Maintenance Due Date Last Done Comments DTAP/TDAP/TD VACCINES (1 - Tdap) 1967 PNEUMOCOCCAL VACCINE 50+ YEARS (1 of 1 - PCV) 03/24/19 98 ZOSTER VACCINE (1 of 2) 1998 OSTEOPOROSIS SCREENING 2013 RSV VACCINE (60+ or ) (1 - 1-dose 75+ series) 2023 INFLUENZA VACCINE (#1) 2023 COLORECTAL SCREENING Discontinued 12/31/2009 Colorectal Cancer Screening Discontinued FIT-DNA Q 3 years Discontinued FIT/FOBT Q 1 year Discontinued Flex Sig/CT Colonography Q 5 years Discontinued Insurance [facility] [employer] ACCESS CHOICE Care Teams Instrument Maker Relationship Specialty Start Date End Date Hollis Pemberton MD [address] [place] [address] PCP - General 05/04/08
--- OUTSIDE RECORDS SUMMARY | 2024-08-01 10:23 | XMS_ITS | Referral Summary ---
Author Organization [facility] Address [address] [place] [address] Care Team Providers Care Aircraft Maintenance Engineer Name Role Phone Aleksandr Pal DO Primary Care Provider [phone] Allergies Active Allergy Reactions Criticality Noted Date Comments Penicillins Hives Medium 2017 Medications amLODIPine (NORVASC) 5 mg tablet Active hydroCHLOROthia zide (MICROZIDE) 12.5 mg capsule 07/19/2018 Act alayna cyanocobalamin, vitamin B-12, 2,500 mcg tablet Active aspirin 81 mg enteric coated tablet Active thymol, bulk, crystalsIndicat ions:Onychomyco sis disolve in pure EtOH and dispense with dropper - apply 2 drops to nails daily 100 g 08/31/2018 Active Active Problems Problem Noted Date Diagnosed Date Sensorineural hearing loss (SNHL) of both ears 0 07/13/2018 Social History Tobacco Use Types Packs/Day Years Used Date Smoking Tobacco: Former Personal Safety Answer Date Recorded Getting School Help Needed Not on file 06/16 Comments Unknown Sex and Gender Information Value Date Recorded Sex Assigned at Not on file Legal Sex Female 10:06 AM CONTINUOUS IMPROVEMENT ENGINEER Gender Identity Not on file Sexual Orientation Not on file Last Filed Vital Signs Vital Sign Reading Time Taken Comments Blood Pressure 145/97 2017 8:59 AM CONTINUOUS IMPROVEMENT ENGINEER Pulse 81 2017 8:59 AM CONTINUOUS IMPROVEMENT ENGINEER Temperature - - Respiratory Rate - - Oxygen Saturation - - Inhaled Oxygen Concentration - - Weight 74.9 kg (165 lb 0.6 oz) 2017 8:59 A M CONTINUOUS IMPROVEMENT ENGINEER Height 162.6 cm (5' 4 ) 2017 8:59 AM CONTINUOUS IMPROVEMENT ENGINEER Body Mass Index 28.33 2017 8:59 AM CONTINUOUS IMPROVEMENT ENGINEER Plan of Treatment Not on file Procedures Procedure Name Priority Date/Time Associated Diagnosis Comments DIGITAL MAMMOGRAPHY Routine 06/23/2012 8 :52 AM CDT from Last 3 Months or Most Recently Relevant to Health Maintenance Results * DIGITAL MAMMOGRAPHY (06/23/2012 8:52 AM CDT) Anatomical Region Laterality Modality Breast Mammography 06/23/2012 8:52 AM CDT Narrative 06/24/2012 8:14 AM CDT Acc#: [id number] KELLEE [id number] - Screening Mamm BI DATE OF EXAM: Jun 23 2012 8:52AM DIAGNOSIS: SCREEN MAMMOGRAPHY NEC CLINICAL HISTORY: SCREENING RESULT: \ BREAST SCREENING DIGITAL WITH CAD BILATERAL A digital mammography study was performed with CAD. Compared to prior. Breasts are heterogeneously dense. There are no suspicious calcifications, nodules or distortion. Parenchymal distribution is stable. IMPRESSION: \ CATEGORY 2 -- BENIGN IMPRESSION OF OVERALL ASSESSMENT CATEGORY 2 -- BENIGN TECHNOLOGIST: JOAQUIM LOWERY, TECHNOLOGIST MEDICAL IMAGING FRONT DESK REPRESENTATIVE: DMKurt TRANSCRIBE DATE/TIME: Jun 23 2012 8:11P RADIOLOGIST: MARYJANE FERNANDEZ M.D. READ ON: Jun 23 2012 5:12P ORDERING DR: ANGÉLICA RAMIREZ M.D. THIS DOCUMENT HAS BEEN ELECTRONICALLY SIGNED BY: MARYJANE FERNANDEZ M.D. ON: Jun 24 2012 8:14A Procedure Note Provider, MD Larry - 07/25/2016 Acc#: [id number] KELLEE 0017 - Screening Mamm BI DATE OF EXAM: Jun 23 2012 8:52AM DIAGNOSIS: SCREEN MAMMOGRAPHY NEC CLINICAL HISTORY: SCREENING RESULT: \ BREAST SCREENING DIGITAL WITH CAD BILATERAL A digital mammography study was performed with CAD. Compared to prior. Breasts are heterogeneously dense. There are no suspicious calcifications, nodules or distortion. Parenchymal distribution is stable. IMPRESSION: \ CATEGORY 2 -- BENIGN IMPRESSION OF OVERALL ASSESSMENT CATEGORY 2 -- BENIGN TECHNOLOGIST: JOAQUIM LOWERY, TECHNOLOGIST MEDICAL IMAGING FRONT DESK REPRESENTATIVE: DMKurt TRANSCRIBE DATE/TIME: Jun 23 2012 8:11P RADIOLOGIST: MARYJANE FERNANDEZ M.D. READ ON: Jun 23 2012 5:12P ORDERING DR: ANGÉLICA RAMIREZ M.D. THIS DOCUMENT HAS BEEN ELECTRONICALLY SIGNED BY: MARYJANE FERNANDEZ M.D. ON: Jun 24 2012 8:14A Historical Provider MD NORRIS MAMMO PROCEDURES Hedy l Result from Last 3 Months or Most Recently Relevant to Health Maintenance Insurance [employer] PPO Care Teams Aircraft Maintenance Engineer Relationship Specialty Start Date End Date Aleksandr Pal DO [address] [place] [address] [address] [place] [address] PCP - General Family Medicine 07/31/23
--- OUTSIDE RECORDS SUMMARY | 2024-08-01 10:23 | XMS_ITS | Encounter Summary ---
Author Organization [facility] Address [address] [place] [address] Care Team Providers Care Elephant Tamer Name Role Phone Hollis Pemberton MD Primary Care Provider [phone] Encounter Details Date Type Department Care Team (Late st Contact Info) Description 04/22/1999 Outpatient Historical [facility] ANHYDROUS AMMONIA PRODUCTION SUPERVISOR - Medical [facility] [address] [address] Silvino Senior MD [address] [place] [address] Social History Tobacco Use Types Packs/Day Years Used Date Smoking Tobacco: Never Assessed Comments Unknown Sex and Gender Information Value Date Recorded Sex Assigned at Not on file Legal Sex Female 2:51 AM SERVICE CREW LEADER Gender Identity Not on file Sexual Orientation Not on file documented as of this encounter Plan of Treatment Not on file documented as of this encounter Visit Diagnoses Not on filedocumented in this encounter Care Teams Elephant Tamer Relationship Specialty Start Date End Date Hollis Pemberton MD [address] [place] [address] PCP - General 05/04/08 documented as of this encounter
--- OUTSIDE RECORDS SUMMARY | 2024-08-01 10:23 | XMS_ITS | Encounter Summary ---
Author Organization [facility] Address [address] [place] [address] Care Team Providers Care Literary Agent Name Role Phone Hollis Pemberton MD Primary Care Provider [phone] Encounter Details Date Type Department Care Team (Late st Contact Info) Description 04/26/2001 Outpatient Historical [facility] INFORMATION TECHNOLOGY OFFICER - Medical [facility] [address] [address] Silvino Senior MD [address] [place] [address] Social History Tobacco Use Types Packs/Day Years Used Date Smoking Tobacco: Never Assessed Comments Unknown Sex and Gender Information Value Date Recorded Sex Assigned at Not on file Legal Sex Female 2:51 AM PRODUCE WEIGHER Gender Identity Not on file Sexual Orientation Not on file documented as of this encounter Plan of Treatment Not on file documented as of this encounter Visit Diagnoses Not on filedocumented in this encounter Care Teams Literary Agent Relationship Specialty Start Date End Date Hollis Pemberton MD [address] [place] [address] PCP - General 05/04/08 documented as of this encounter
--- OUTSIDE RECORDS SUMMARY | 2024-08-01 10:23 | XMS_ITS | Encounter Summary ---
Author Organization [facility] Address [address] [place] [address] Care Team Providers Care Coil Assembler Name Role Phone Hollis Pemberton MD Primary Care Provider [phone] Encounter Details Date Type Department Care Team (Late st Contact Info) Description 04/18/2002 Outpatient Historical [facility] SET O TYPE OPERATOR - [facility] [address] [place] [address] Silvino Senior MD [address] [address] Social History Tobacco Use Types Packs/Day Years Used Date Smoking Tobacco: Never Assessed Comments Unknown Sex and Gender Information Value Date Recorded Sex Assigned at Not on file Legal Sex Female 2:51 AM GLASS EMBOSSER Gender Identity Not on file Sexual Orientation Not on file documented as of this encounter Plan of Treatment Not on file documented as of this encounter Visit Diagnoses Not on filedocumented in this encounter Care Teams Coil Assembler Relationship Specialty Start Date End Date Hollis Pemberton MD [address] [place] [address] PCP - General 05/04/08 documented as of this encounter
--- OUTSIDE RECORDS SUMMARY | 2024-08-01 10:23 | XMS_ITS | Encounter Summary ---
Author Organization [facility] Address [address] [place] [address] Care Team Providers Care Dermatologist Managing Partner Name Role Phone Hollis Pemberton MD Primary Care Provider [phone] Encounter Details Date Type Department Care Team (Late st Contact Info) Description 05/05/2005 Outpatient Historical [facility] DIRECTOR OUTPATIENT SERVICES - [facility] [address] [facility] [address] [place] [address] Silvino Senior MD [id number] [address] Social History Tobacco Use Types Packs/Day Years Used Date Smoking Tobacco: Never Assessed Comments Unknown Sex and Gender Information Value Date Recorded Sex Assigned at Not on file Legal Sex Female 2:51 AM BAG MACHINE OPERATOR Gender Identity Not on file Sexual Orientation Not on file documented as of this encounter Plan of Treatment Not on file documented as of this encounter Visit Diagnoses Not on filedocumented in this encounter Care Teams Dermatologist Managing Partner Relationship Specialty Start Date End Date Hollis Pemberton MD [address] [place] [address] PCP - General 05/04/08 documented as of this encounter
--- OUTSIDE RECORDS SUMMARY | 2024-08-01 10:23 | XMS_ITS | Encounter Summary ---
Author Organization [facility] Address [address] [place] [address] Care Team Providers Care Loom Operator Name Role Phone Hollis Pemberton MD Primary Care Provider [phone] Encounter Details Date Type Department Care Team (Late st Contact Info) Description 08/03/2006 Outpatient Historical [facility] SIDE PIECE COVERER - [place] [id number] [facility] [address] [place] [address] Silvino Senior MD [address] [address] Social History Tobacco Use Types Packs/Day Years Used Date Smoking Tobacco: Never Assessed Comments Unknown Sex and Gender Information Value Date Recorded Sex Assigned at Not on file Legal Sex Female 2:51 AM PATTERNMAKER BENCH Gender Identity Not on file Sexual Orientation Not on file documented as of this encounter Plan of Treatment Not on file documented as of this encounter Visit Diagnoses Not on filedocumented in this encounter Care Teams Loom Operator Relationship Specialty Start Date End Date Hollis Pemberton MD [address] [place] [address] PCP - General 05/04/08 documented as of this encounter
--- OUTSIDE RECORDS SUMMARY | 2024-08-01 10:23 | XMS_ITS | Clinical Summary ---
Author Organization [facility] Address [address] [place] [address] Care Team Providers Care Casting Molder Name Role Phone Aleksandr Pal DO Primary Care Provider [phone] Allergies Active Allergy Reactions Criticality Noted Date [...] loss (SNHL) of both ears 0 07/13/2018 Surgical History Surgery Date Site/Laterality Comments GALLBLADDER SURGERY Gallbladder Surgery - (Added by TW Conv) [place] DELIVERY ONLY Section - (Added by TW Conv) Medical History Medical History Date Comments Allergy status to unspecifie d drugs, medicaments and biological substances status History of seasonal allergie s - (Added by TW Conv) Personal history of other di seases of the nervous system and sense organs History of catarac t - (Added by TW Conv) Personal history of other di seases of the circulatory system History of hypertension - (A dded by TW Conv) HL (hearing loss) Hypertension Family History Medical History Relation Name Comments Heart attack Father Family history of myocardial infarction - (Added by TW Conv) Heart attack Mother Family history of myocardial infarction - (Added by TW Conv) Relation Name Status Comments Father Mother Social History Tobacco Use Types Packs/Day Years Used Date Smoking Tobacco: Former Personal Safety Answer Date Recorded Getting School Help Needed Not on file 06/16 Comments Unknown Sex and Gender Information Value Date Recorded Sex Assigned at Not on file Legal Sex Female 10:06 AM MARINE FARMER Gender Identity Not on file Sexual Orientation Not on file Obstetrics History Last Filed Vital Signs Vital Sign Reading Time Taken Comments Blood Pressure 145/97 2017 8:59 AM MARINE FARMER Pulse 81 2017 8:59 AM MARINE FARMER Temperature - - Respiratory Rate - - Oxygen Saturation - - Inhaled Oxygen Concentration - - Weight 74.9 kg (165 lb 0.6 oz) 2017 8:59 A M MARINE FARMER Height 162.6 cm (5' 4 ) 2017 8:59 AM MARINE FARMER Body Mass Index 28.33 2017 8:59 AM MARINE FARMER Plan of Treatment Health Maintenance Due Date Last Done Comments Depression Screening 1948 Fall Risk Assessment 1948 Hepatitis C Screening 1948 Osteoporosis Screening-Bone Density Scan 1948 DTaP/Tdap/Td Vaccine (1 - Tdap) 1959 Hepatitis B Screening 1966 Pneumococcal vaccine 65+ (1 of 1 - PCV) 1998 Zoster Vaccine (1 of 2) 1998 Well Visit 65+ 2013 Influenza Vaccine (Season Ended) 2024 01/21/20 19, 01/13/2018 Breast Cancer Screening-Mammogram Discontinued 013, 06/23/2012 Procedures Procedure Name Priority Date/Time Associated Diagnosis Comments DIGITAL MAMMOGRAPHY Routine 06/23/2012 8 :52 AM CDT from Last 3 Months or Most Recently Relevant to Health Maintenance Results * DIGITAL MAMMOGRAPHY (06/23/2012 8:52 AM CDT) Anatomical Region Laterality Modality Breast Mammography 06/23/2012 8:52 AM CDT Narrative 06/24/2012 8:14 AM CDT Acc#: [id number] KELLEE 0017 - Screening Mamm BI DATE [...] ASSESSMENT CATEGORY 2 -- BENIGN TECHNOLOGIST: JOAQUIM LOWERY TECHNOLOGIST MEDICAL IMAGING MANAGER MBA: DMKurt TRANSCRIBE DATE/TIME: Jun 23 2012 8:11P RADIOLOGIST: MARYJANE FERNANDEZ M.D. READ ON: Jun 23 2012 5:12P ORDERING DR: ANGÉLICA RAMIREZ M.D. THIS DOCUMENT HAS BEEN ELECTRONICALLY SIGNED BY: MARYJANE FERNANDEZ M.D. ON: Jun 24 2012 8:14A Procedure Note Provider, MD Larry - 07/25/2016 Acc#: [id number] KELLEE 0017 - Screening Mamm BI DATE [...] ASSESSMENT CATEGORY 2 -- BENIGN TECHNOLOGIST: JOAQUIM LOWERY TECHNOLOGIST MEDICAL IMAGING MANAGER MBA: [id number] TRANSCRIBE DATE/TIME: Jun 23 2012 8:11P RADIOLOGIST: MARYJANE FERNANDEZ M.D. READ ON: Jun 23 2012 5:12P ORDERING DR: ANGÉLICA RAMIREZ M.D. THIS DOCUMENT HAS BEEN ELECTRONICALLY SIGNED BY: MARYJANE FERNANDEZ M.D. ON: Jun 24 2012 8:14A Historical Provider MD NORRIS MAMMO PROCEDURES Hedy l Result from Last 3 Months or Most Recently Relevant to Health Maintenance Insurance [employer] PPO Care Teams Casting Molder Relationship Specialty Start Date End Date Aleksandr Pal DO [facility] [facility] [address] PCP - General Family Medicine 07/31/23
--- OUTSIDE RECORDS SUMMARY | 2024-08-01 10:23 | XMS_ITS | Encounter Summary ---
Author Organization [facility] Address [address] [place] [address] Care Team Providers Care Director Cpg Name Role Phone Hollis Pemberton MD Primary Care Provider [phone] Encounter Details Date Type Department Care Team (Late st Contact Info) Description 04/20/2000 Outpatient Historical [facility] TRANSPORTATION MECHANIC - Medical [facility] [address] [address] Silvino Senior MD [id number] [place] [address] Social History Tobacco Use Types Packs/Day Years Used Date Smoking Tobacco: Never Assessed Comments Unknown Sex and Gender Information Value Date Recorded Sex Assigned at Not on file Legal Sex Female 2:51 AM COAL DIGGER Gender Identity Not on file Sexual Orientation Not on file documented as of this encounter Plan of Treatment Not on file documented as of this encounter Visit Diagnoses Not on filedocumented in this encounter Care Teams Director Cpg Relationship Specialty Start Date End Date Hollis Pemberton MD [address] [place] [address] PCP - General 05/04/08 documented as of this encounter
[2024-08-01 11:26] LABS: Basophils Percent Auto 0.5 % (0.2-1.2); Eosinophils Absolute Auto 0.3 K/mm3 (0-0.3); Eosinophils Percent Auto 4.3 % (0-4.4); Hematocrit 44.7 % (37.0-47.0); Hemoglobin 14.7 g/dL (12.0-15.0); Immature Granulocyte Absolute 0.01 K/mm3 (0.00-0.031); Immature Granulocyte Percent A 0.2 % (0-0.5); Lymphocytes Absolute Auto 2.01 K/mm3 (0.9-3.2); Lymphocytes Percent Auto 33.6 % (18.3-44.2); Mean Corpuscular HGB Conc 32.9 g/dl (32-36); Mean Corpuscular Hemoglobin 31.1 pg (26-34); Mean Corpuscular Volume 94.7 fl (80-100); Mean Platelet Volume 10.7 fl (7.4-10.4); Monocytes Absolute Auto 0.4 K/mm3 (0.1-0.6); Monocytes Percent Auto 6.5 % (2.6-8.5); Neutrophils Absolute Auto 3.3 K/mm3 (1.3-6.7); Neutrophils Percent Auto 54.9 % (45.5-73.1); Platelet Count Result 208 k/mm3 (150-375); Red Blood Count 4.72 M/mm3 (4.2-5.4); Red Cell Distribution Width 12.5 % (11.5-14.5)
[2024-08-01 11:43] LABS: Alanine Aminotransferase 21 U/L (6-35); Albumin Level 4.2 g/dL (3.5-5.1); Alkaline Phosphatase 112 U/L (38-126); Anion Gap 8 mmol/L (4-12); Aspartate Amino Transferase 51 U/L (14-36); Bilirubin,Total 0.8 mg/dL (0.2-1.3); Blood Urea Nitrogen 16 mg/dL (7-17); Calcium 9.1 mg/dL (8.4-10.2); Carbon Dioxide 27 mmol/L (22-30); Chloride 106 mmol/L (98-107); Cholesterol 178 mg/dL (0-200); Estimated Glomerular Filt Rate > 60; Glucose 97 mg/dL (65-110); HDL Direct 76 mg/dL; Potassium 3.9 mmol/L (3.4-5.0); Sodium 141 mmol/L (137-145); Triglycerides 73 mg/dL (<150)
[2024-08-01 11:52] LABS: Hemoglobin A1C 5.3 % (<5.7)
[2024-08-01 11:55] LABS: LDL Cholesterol Direct 66 mg/dL
[2024-08-01 12:15] LABS: Free T4 Free Thyroxine 1.46 ng/dL (0.78-2.19)
== END 2024-08-01 09:33 | disposition home or self-care (01) ==
LOC: ANHGOSHLAB 09:33
PROVIDERS: PCP Family Medicine; Visit Provider Family Medicine
DX: R73.9 Hyperglycemia, unspecified (principal); I10 Essential (primary) hypertension; E78.00 Pure hypercholesterolemia, unspecified; M85.89 Other specified disorders of bone density and structure, multiple sites; E55.9 Vitamin D deficiency, unspecified; G25.0 Essential tremor; R53.83 Other fatigue
CPT/HCPCS: 36415; 80053; 80061; 82306; 83036; 84439; 84443; 85025

== ENCOUNTER 2024-09-06 09:48 | Outpatient (CLI) | payer OTHER, SELFPAY ==
--- NOTE | ~2024-09-06 | MM_ITS ---
PROCEDURE: MM SCREENING KELLIE BI W JOVANI INDICATION: Asymptomatic, referred for screening mammogram COMPARISON: 07/08/2023 through 04/13/2019 TECHNIQUE: Digital breast tomosynthesis craniocaudal and mediolateral oblique views of Both breasts w ere obtained with computer-aided detection to assist in interpretation of the study. FINDINGS: There are scattered areas of fibroglandular density. No focal dominant mass, architectural distortion, or suspicious microcalcifications are identified. There are no features to suggest malignancy. IMPRESSION: No evidence of malignancy in the breast. Recommend continued screening mammography BI-RADS 1, NEGATIVE Reviewed, dictated and finalized at location B.
--- OUTSIDE RECORDS SUMMARY | 2024-09-06 10:12 | XMS_ITS | Referral Summary ---
Author Organization [facility] Address [address] [place] [address] Care Team Providers Care Can Labeler Name Role Phone Aleksandr Pal DO Primary Care Provider [phone] Allergies Active Allergy Reactions Criticality Noted Date [...] on file Legal Sex Female 10:06 AM EXERCISE EQUIPMENT SPECIALIST Gender Identity Not on file Sexual Orientation Not on file Last Filed Vital Signs Vital Sign Reading Time Taken Comments Blood Pressure 145/97 2017 8:59 AM EXERCISE EQUIPMENT SPECIALIST Pulse 81 2017 8:59 AM EXERCISE EQUIPMENT SPECIALIST Temperature - - Respiratory Rate - - Oxygen Saturation - - Inhaled Oxygen Concentration - - Weight 74.9 kg (165 lb 0.6 oz) 2017 8:59 A M EXERCISE EQUIPMENT SPECIALIST Height 162.6 cm (5' 4) 2017 8:59 AM EXERCISE EQUIPMENT SPECIALIST Body Mass Index 28.33 2017 8:59 AM EXERCISE EQUIPMENT SPECIALIST Plan of Treatment Not on file Insurance [employer] PPO Care Teams Can Labeler Relationship Specialty Start Date End Date Aleksandr Pal DO [facility] [facility] [place] [address] PCP - General Family Medicine 07/31/23
--- OUTSIDE RECORDS SUMMARY | 2024-09-06 10:12 | XMS_ITS | Encounter Summary ---
Author Organization [facility] Address [address] [place] [address] Care Team Providers Care Health Center Associate Name Role Phone Hollis Pemberton MD Primary Care Provider [phone] Encounter Details Date Type Department Care Team (Late st Contact Info) Description 08/03/2006 Outpatient Historical [facility] RING SPINNER - [place] [address] [facility] [address] [place] [address] Silvino Senior MD [address] [address] Social History Tobacco Use Types Packs/Day Years Used Date Smoking Tobacco: Never Assessed Comments Unknown Sex and Gender Information Value Date Recorded Sex Assigned at Not on file Legal Sex Female 2:51 AM HVAC TECHNICIAN RESIDENTIAL Gender Identity Not on file Sexual Orientation Not on file documented as of this encounter Plan of Treatment Not on file documented as of this encounter Visit Diagnoses Not on filedocumented in this encounter Care Teams Health Center Associate Relationship Specialty Start Date End Date Hollis Pemberton MD [address] [place] [phone] PCP - General 05/04/08 documented as of this encounter
--- OUTSIDE RECORDS SUMMARY | 2024-09-06 10:12 | XMS_ITS | Encounter Summary ---
Author Organization [facility] Address [address] [place] [address] Care Team Providers Care Copy Holder Name Role Phone Hollis Pemberton MD Primary Care Provider [phone] Encounter Details Date Type Department Care Team (Late st Contact Info) Description 04/18/2002 Outpatient Historical [facility] HORTICULTURE SUPERVISOR - [facility] [address] [facility] [address] [place] [address] Silvino Senior MD [address] [address] Social History Tobacco Use Types Packs/Day Years Used Date Smoking Tobacco: Never Assessed Comments Unknown Sex and Gender Information Value Date Recorded Sex Assigned at Not on file Legal Sex Female 2:51 AM EARLY CHILDHOOD COORDINATOR Gender Identity Not on file Sexual Orientation Not on file documented as of this encounter Plan of Treatment Not on file documented as of this encounter Visit Diagnoses Not on filedocumented in this encounter Care Teams Copy Holder Relationship Specialty Start Date End Date Hollis Pemberton MD [address] [place] [phone] PCP - General 05/04/08 documented as of this encounter
--- OUTSIDE RECORDS SUMMARY | 2024-09-06 10:12 | XMS_ITS | Encounter Summary ---
Author Organization [facility] Address [address] [place] [address] Care Team Providers Care Apartment Maintenance Technician Name Role Phone Hollis Pemberton MD Primary Care Provider [phone] Encounter Details Date Type Department Care Team (Late st Contact Info) Description 04/26/2001 Outpatient Historical [facility] INVENTORY SPECIALIST - Medical [facility] [address] [address] Silvino Senior MD [address] [place] [address] Social History Tobacco Use Types Packs/Day Years Used Date Smoking Tobacco: Never Assessed Comments Unknown Sex and Gender Information Value Date Recorded Sex Assigned at Not on file Legal Sex Female 2:51 AM OTR DRIVER Gender Identity Not on file Sexual Orientation Not on file documented as of this encounter Plan of Treatment Not on file documented as of this encounter Visit Diagnoses Not on filedocumented in this encounter Care Teams Apartment Maintenance Technician Relationship Specialty Start Date End Date Hollis Pemberton MD [address] [place] [address] PCP - General 05/04/08 documented as of this encounter
--- OUTSIDE RECORDS SUMMARY | 2024-09-06 10:12 | XMS_ITS | Clinical Summary ---
Author Organization [facility] Address [address] [place] [address] Care Team Providers Care Gluer And Slicer Hand Name Role Phone Hollis Pemberton MD Primary Care Provider [phone] Allergies Active Allergy Reactions Criticality Noted Date [...] on file Legal Sex Female 2:51 AM ASPHALT PAVER Gender Identity Not on file Sexual Orientation Not on file Occupation Industry Job Start Date Job End Date Not on file Not on file Not on file Not on file Last Filed Vital Signs Vital Sign Reading Time Taken Comments Blood Pressure 135/82 05/25/2012 9:58 AM ASPHALT PAVER Pulse - - Temperature - - Respiratory Rate - - Oxygen Saturation - - Inhaled Oxygen Concentration - - Weight 73.9 kg (163 lb) 05/25/2012 9:58 AM ASPHALT PAVER Height 160 cm (5' 3) 05/25/2012 9:58 AM ASPHALT PAVER Body Mass Index 28.87 05/25/2012 9:58 AM ASPHALT PAVER Plan of Treatment Health Maintenance Due Date [...] Sig/CT Colonography Q 5 years Discontinued Insurance [facility] [employer] ACCESS CHOICE Care Teams Gluer And Slicer Hand Relationship Specialty Start Date End Date Hollis Pemberton MD [address] [place] [address] PCP - General 05/04/08
--- OUTSIDE RECORDS SUMMARY | 2024-09-06 10:12 | XMS_ITS | Clinical Summary ---
Author Organization 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 Gender Identity Not on file Sexual Orientation Not on file Obstetrics History Last Filed Vital Signs Vital Sign Reading Time Taken Comments Blood Pressure 145/97 2017 8:59 AM WIRE PREPARATION WORKER Pulse 81 2017 8:59 AM WIRE PREPARATION WORKER Temperature - - Respiratory Rate - - Oxygen Saturation - - Inhaled Oxygen Concentration - - Weight 74.9 kg (165 lb 0.6 oz) 2017 8:59 A M WIRE PREPARATION WORKER Height 162.6 cm (5' 4) 2017 8:59 AM WIRE PREPARATION WORKER Body Mass Index 28.33 2017 8:59 AM WIRE PREPARATION WORKER Plan of Treatment Not on file Insurance [employer] CHOICE PPO Care Teams Haz Tech Relationship Specialty Start Date End Date Aleksandr Pal DO [address] [place] [address] [place] [address] PCP - General Family Medicine 07/31/23
--- OUTSIDE RECORDS SUMMARY | 2024-09-06 10:12 | XMS_ITS | Encounter Summary ---
Author Organization [facility] Address 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 - [facility] [address] [facility] [address] [place] [address] Silvino Senior MD [id number] [address] Social History Tobacco Use Types Packs/Day Years Used Date Smoking Tobacco: Never Assessed Comments Unknown Sex and Gender Information Value Date Recorded Sex Assigned at Not on file 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
--- OUTSIDE RECORDS SUMMARY | 2024-09-06 10:12 | XMS_ITS | Encounter Summary ---
Author Organization [facility] Address 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 - Medical [facility] [address] [address] Silvino Senior MD [address] [place] [address] Social History Tobacco Use Types Packs/Day Years Used Date Smoking Tobacco: Never Assessed Comments Unknown Sex and Gender Information Value Date Recorded Sex Assigned at Not on file 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
--- OUTSIDE RECORDS SUMMARY | 2024-09-06 10:12 | XMS_ITS | Encounter Summary ---
Author Organization [facility] Address 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 - [facility] [address] [place] [address] Silvino Senior MD [address] [address] Social History Tobacco Use Types Packs/Day Years Used Date Smoking Tobacco: Never Assessed Comments Unknown Sex and Gender Information Value Date Recorded Sex Assigned at Not on file 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
--- OUTSIDE RECORDS SUMMARY | 2024-09-06 10:12 | XMS_ITS | Encounter Summary ---
Author Organization [facility] Address 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 - Medical [facility] [address] [address] Silvino Senior MD [address] [place] [address] Social History Tobacco Use Types Packs/Day Years Used Date Smoking Tobacco: Never Assessed Comments Unknown Sex and Gender Information Value Date Recorded Sex Assigned at Not on file 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
--- OUTSIDE RECORDS SUMMARY | 2024-09-06 10:12 | XMS_ITS | Encounter Summary ---
Author Organization [facility] Address [address] [place] [address] Care Team Providers Care Mobile Ui Designer Name Role Phone Hollis Pemberton MD Primary Care Provider [phone] Encounter Details Date Type Department Care Team (Late st Contact Info) Description 04/22/2004 Outpatient Historical [facility] 911 OPERATOR - [facility] [address] [facility] [address] [place] [address] Silvino Senior MD [address] [address] Social History Tobacco Use Types Packs/Day Years Used Date Smoking Tobacco: Never Assessed Comments Unknown Sex and Gender Information Value Date Recorded Sex Assigned at Not on file Legal Sex Female 2:51 AM DRAPERY COUNSELOR Gender Identity Not on file Sexual Orientation Not on file documented as of this encounter Plan of Treatment Not on file documented as of this encounter Visit Diagnoses Not on filedocumented in this encounter Care Teams Mobile Ui Designer Relationship Specialty Start Date End Date Hollis Pemberton MD [address] [place] [phone] PCP - General 05/04/08 documented as of this encounter
== END 2024-09-06 09:49 | disposition home or self-care (01) ==
PROVIDERS: PCP Family Medicine; Visit Provider Family Medicine
DX: Z12.31 Encounter for screening mammogram for malignant neoplasm of breast (principal)
CPT/HCPCS: 77063; 77067